=== PATIENT | female | born 1935 | race Caucasian/White ===

== ENCOUNTER 2017-03-04 08:00 | Inpatient (IN) ==
--- NOTE | 2017-02-26 15:26 | EKG Report ---
Test Performed on : 02/26/2017 3:23:44 PM Test Reason : PAT Blood Pressure : / mmHG Vent. Rate : 071 BPM Atrial Rate : 071 BPM P-R Int : 160 ms QRS Dur : 088 ms QT Int : 412 ms P-R-T Axes : 005 -31 051 degrees QTc Int : 447 ms Normal sinus rhythm. Left axis deviation Abnormal ECG No previous ECGs available Confirmed by Neri Denis MD ([id number]) on 02/27/2017 1:09:39 PM
[2017-02-26 15:40] LABS: MANUAL DIFF NEEDED? NO; URINE MICRO REVIEW NEEDED? NO; URINE SOURCE CLEAN CATCH
[2017-02-26 15:43] LABS: BILIRUBIN URINE NEGATIVE (NEGATIVE); BLOOD URINE NEGATIVE (NEGATIVE); COLOR YELLOW; GLUCOSE URINE NEGATIVE (NEGATIVE); LEUKOCYTES URINE MODERATE (NEGATIVE); NITRITE URINE NEGATIVE (NEGATIVE); PROTEIN URINE NEGATIVE (NEGATIVE); TURBIDITY URINE CLEAR (CLEAR); UR EPITHELIAL CELLS <10 /HPF (<10); URINE BACTERIA NEGATIVE /HPF; URINE RBC <10 /HPF (<10); UROBILINOGEN URINE NORMAL (NORMAL)
[2017-02-26 15:46] LABS: BASO% 0.4 % (0.0-0.8); EOS# 0.14 X1000 (0.0-0.7); EOS% 3.1 % (0.0-10.0); HEMATOCRIT 36.7 % (37.0-47.0); HEMOGLOBIN 12.2 g/dL (12.0-16.0); LYMPH# 1.09 X1000 (1.2-3.4); LYMPH% 23.7 % (20.5-51.1); MCH 34.1 PG (27-31); MCHC 33.2 g/dL (33-37); MCV 102.5 FL (81-99); MONO# 0.56 X1000 (0.11-0.59); MONO% 12.2 % (1.7-9.3); MPV 10.4 FL (7.4-10.4); NEUT% 60.6 % (42.2-75.2); PLT 91 X1000 (130-400); RBC 3.58 XMIL (4.2-5.4)
[2017-02-26 15:50] LABS: INR 1.16; PROTIME 12.3 Seconds (9.2-11.7)
[2017-02-26 16:10] LABS: CALCIUM 9.1 mg/dL (8.8-10.2)
[~2017-03-04 08:00] MED LIST: PRILOSEC PO PRN
[2017-03-04] MEDS ORDERED: REGLAN ONE (08:18)
[2017-03-04] MEDS ORDERED: COLACE ONE (08:18)
[2017-03-04] MEDS ORDERED: LR 1,000 ML ONE (08:18)
[2017-03-04] MEDS ORDERED: VANCOMYCIN 1 GM/NS 1 GM/250 ML IVPB ONE (08:18)
[2017-03-04] MEDS ORDERED: PEPCID ONE (08:18)
[2017-03-04] MEDS ORDERED: DIPRIVAN 1% ONE ×2 (09:38→11:42)
[2017-03-04] MEDS ORDERED: XYLOCAINE-MPF 2% ONE (09:39)
[2017-03-04] MEDS ORDERED: TORADOL ONE (09:40)
[2017-03-04] MEDS ORDERED: SODIUM CHLORIDE 0.9% ONE (09:40)
[2017-03-04] MEDS ORDERED: SENSORCAINE 0.25%/EPI 1:200,000 ONE (09:40)
[2017-03-04] MEDS ORDERED: DURAMORPH ONE (09:40)
[2017-03-04] MEDS ORDERED: VANCOMYCIN ONE (09:40)
[2017-03-04] MEDS ORDERED: CYKLOKAPRON 1,000 MG/NS 1,000 MG/100 ML IVPB ONE ×2 (09:40→09:41)
[2017-03-04] MEDS ORDERED: NEOSPORIN G.U. IRRIGANT ONE (09:41)
[2017-03-04] MEDS ORDERED: EXPAREL 1.3% ONE (09:41)
[2017-03-04] MEDS ORDERED: ZOFRAN ONE (10:01)
[2017-03-04] MEDS ORDERED: VERSED ONE ×2 (10:09→10:43)
[2017-03-04] MEDS ORDERED: FENTANYL ONE ×2 (10:33→14:09)
[2017-03-04] MEDS ORDERED: NEO-SYNEPHRINE ONE (11:15)
[2017-03-04] MEDS ORDERED: EPHEDRINE ONE (11:15)
[2017-03-04 11:20] LABS: URINE MICRO REVIEW NEEDED? NO; URINE SOURCE CATH
[2017-03-04 11:26] LABS: BILIRUBIN URINE NEGATIVE (NEGATIVE); BLOOD URINE NEGATIVE (NEGATIVE); COLOR YELLOW; GLUCOSE URINE NEGATIVE (NEGATIVE); LEUKOCYTES URINE NEGATIVE (NEGATIVE); NITRITE URINE NEGATIVE (NEGATIVE); PROTEIN URINE NEGATIVE (NEGATIVE); SP GRAVITY URINE 1.017; TURBIDITY URINE CLEAR (CLEAR); UROBILINOGEN URINE NORMAL (NORMAL)
[2017-03-04 11:27] LABS: UR EPITHELIAL CELLS <10 /HPF (<10); URINE BACTERIA NEGATIVE /HPF; URINE RBC <10 /HPF (<10); URINE WBC <10 /HPF (<10)
[2017-03-04] MEDS ORDERED: OFIRMEV 1000 MG/ISOTONIC SOLN 1,000 MG/100 ML BOTTLE ONE (11:27)
[2017-03-04] MEDS ORDERED: DECADRON ONE (11:33)
[2017-03-04] MEDS ORDERED: ZOFRAN PO PRN (14:30)
[2017-03-04] MEDS ORDERED: MILK OF MAGNESIA PO PRN (14:30)
[2017-03-04] MEDS: MOBIC PO SCH (14:43)
[2017-03-04] MEDS: PRINIVIL PO SCH ×2 (14:43→21:04)
[2017-03-04] MEDS: HYDROCHLOROTHIAZIDE PO SCH (14:43)
[2017-03-04] MEDS: NS 1,000 ML IV SCH (14:44)
--- NOTE | 2017-03-04 15:36 | OPERATIVE NOTE ---
PROCEDURE DATE: 03/04/2017 PREOPERATIVE DIAGNOSIS: Degenerative osteoarthritis of the right knee. POSTOPERATIVE DIAGNOSIS: Degenerative osteoarthritis of the right knee. PROCEDURE: Right total knee arthroplasty with DePuy Attune size 5 narrow posterior stabilized femur, a size 4 tibial tray, a 5 mm rotating platform tibial insert, and a 35 mm medialized anatomic patella. SURGEON: Vernon Rangel MD. [employer]: Monroe Schmitt and Emmie Parson. ANESTHESIA: Spinal. IV FLUIDS: 2000 mL lactated Ringer's. ESTIMATED BLOOD LOSS: 30 mL. TOURNIQUET TIME: 85 minutes at 350 mmHg. DRAINS: One Hemovac drain was placed and was not sewn in. COMPLICATIONS: None. INDICATION: The patient is a 81-year-old female with chronic history of worsening pain and discomfort in the right knee. Continued pain and discomfort despite appropriate nonoperative treatment. X-rays revealed degenerative osteoarthritis, and recommendation to proceed with right total knee arthroplasty was offered. The risks and benefits of surgical anchors, anesthesia, , bleeding, infection, failure to relieve pain, postoperative stiffness, nerve injury, blood clots, and other imponderables. All questions were answered. The patient and family wished to proceed. DETAILS OF OPERATION: The patient was taken to the operating room and placed supine on the operating table. Once adequate anesthesia was obtained, patient's right lower extremity was prepped and draped in usual sterile fashion. Esmarch was used to exsanguinate the right lower extremity and the tourniquet was inflated to 350 mmHg. A standard anterior incision made with a skin knife. Medial and lateral skin envelopes were developed. A standard medial parapatellar arthrotomy was then performed. Patella fat pad was excised. Retractors then placed. Approximately 1 cm anterior to the PCL insertion, a starting reamer was passed. Intramedullary guide with a distal femoral cutting block was pinned in position. The distal femoral cut was then performed under standard fashion. A sizing block was placed and measured to a size 5. Corresponding pins were placed. A size 5 cutting block was placed in position. Anterior, posterior, and chamfer cuts were then made. Attention then turned to the proximal femur where further resection of the ACL and PCL was performed. Using the extramedullary tibial guide a proximal tibia cutting block was pinned in position. Had good alignment confirmed with the alignment argenis. The proximal tibia was then resected in standard fashion. Medial and lateral meniscus was excised. A curved osteotome was used to remove the posterior osteophytes off the distal femur. A spacer block was placed and had good soft tissue balancing in both flexion and extension. Attention then turned back to the proximal tibia where the size 4 tibial tray appeared to the correct size. Corresponding pins were placed. This was followed by a central reamer and a fin punch. A box cutting guide was then placed on the distal femur and a box cut was performed. A trial femoral component was then placed and the 2 lug holes were drilled. A trial tibial insert was then placed and had good soft tissue balancing. The patella was everted and resected in a standard fashion. The size 35 appeared to be the correct size. Corresponding holes were drilled. A trial tibial patella component was then placed and had good patellofemoral tracking. All components were then removed. Copious irrigation then performed with antibiotic pulsatile lavage while vancomycin was mixed with cement on the back table. Sequential cementing was then performed, first with the tibial tray, and excess cement with a Norwood, followed by the femoral component and excess cement with a Norwood, followed by trial tibial insert in full extension, and axial loading was maintained while the cement cured. The patella was cemented in standard fashion and patella clamp was placed. Exparel was placed in the deep soft tissue, as well as subcutaneous tissue while the cement was curing. After cement had cured the peripheral cement was removed with a small osteotome. A 5 mm rotating platform tibial insert appeared to be correct size. The trial tibial insert was then removed and Exparel was placed in deep posterior capsule. The wound was copiously irrigated with antibiotic pulsatile lavage, followed by the 5 mm rotating platform tibial insert. The knee was carried through a range of motion and had good range of motion, good soft tissue balancing and good patellofemoral tracking. A 1/8 Hemovac drain was placed, it was not sewn in. Copious irrigation performed once again with antibiotic pulsatile lavage. A #1 Vicryl was used to repair the arthrotomy, followed by 2-0 Vicryl to repair the subcutaneous tissue, and skin tiffany. Adaptic, sterile 4 x 4, Webril, cryo unit, and Yevgeniy wrap applied to right lower extremity. Patient tolerated the procedure well with no complications. Transferred to the recovery room in stable condition the. cc: Vernon Rangel MD
[2017-03-04] MEDS: OXY IR PO PRN ×2 (16:17→21:03)
--- NOTE | 2017-03-04 16:41 | HISTORY AND PHYSICAL ---
SURGICAL HISTORY AND PHYSICAL: CHIEF COMPLAINT: Right knee pain. HISTORY OF PRESENT ILLNESS: Mrs. Dunn is a 81-year-old, white female who has experienced longstanding right knee pain. Her pain has been progressive. Radiographic evaluation of the knee reveals findings consistent with advanced degenerative joint disease. Despite conservative therapy, she still has a significant reduction in her ability to carry out her normal daily activities. She will be admitted at this time for right total knee arthroplasty. PRIMARY CARE PROVIDER: Miguel Acuna. ALLERGIES: 1. Contrast media. 2. Lyrica. 3. Sulfa drugs. 4. Penicillins. PAST MEDICAL HISTORY: 1. Osteoarthritis. 2. Hypertension. 3. Gastroesophageal reflux disease. 4. Degenerative disk disease. 5. Lower extremity neuropathy. PAST SURGICAL HISTORY: 1. Anterior cervical disk fixation. 2. Left total knee arthroplasty. 3. Bilateral shoulder arthroscopies. 4. Cholecystectomy. 5. section. 6. Hysterectomy. 7. Bilateral cataract surgery. 8. Low back diskectomy. SOCIAL HISTORY: The patient is . She is a nonsmoker. CURRENT MEDICATIONS: 1. Prilosec 20 daily as needed. 2. Meloxicam 15 mg daily. 3. Prinivil 20 mg twice daily. 4. Lortab 10 1 tablet by mouth up to 3 times a day. 5. Hydrochlorothiazide 25 mg by mouth daily. 6. Guaifenesin and dextromethorphan 1 tablet by mouth as necessary. REVIEW OF SYSTEMS: HEENT: Previously underwent cataract surgery. No known history of stroke or cerebrovascular disease. Cardiac: She has a history of hypertension. No history of heart disease or valvular heart disease. Denies chest pain, pressure, or other anginal equivalents. Pulmonary: The patient is a nonsmoker with no lung disease. Gastrointestinal: She is treated for intermittent gastroesophageal reflux disease. Genitourinary: Denies kidney or bladder infection or dysfunction. Neurological: She is treated for a lower extremity neuropathy. Musculoskeletal: She has a history of arthritis, previous left knee replacement. She is here for today for management of her right knee arthritis, and she has a longstanding history of degenerative disk disease, previously undergoing back surgery PHYSICAL EXAMINATION: GENERAL APPEARANCE: The patient is resting comfortably in bed. She is articulate and able to answer all questions. Her is at her bedside. HEENT: Head is normocephalic and atraumatic. Pupils are equal, round, react to light. Nares patent. Throat without exudate. NECK: Supple. HEART: Regular rate and rhythm. No murmurs, gallops, or rubs. LUNGS: Clear to auscultation bilaterally. GASTROINTESTINAL: Abdomen is round. Bowel sounds are present. It is nontender. GENITOURINARY: Not examined. NEUROLOGICAL: Gross motor function is intact as well as sensation to soft touch. MUSCULOSKELETAL: Right knee, no deformity is noted. She does have some lower extremity woody edema on the right. She has 2+ capillary refill. I was unable to palpate her distal pulses secondary to swelling. IMPRESSION: Degenerative joint disease of the right knee. PLAN: Right total knee arthroplasty. The risks and benefits of surgery were explained to the patient including the risk of anesthesia, , bleeding, infection, damage to tendons, ligaments, nerves, blood vessels, the possibility of blood clots and other imponderables were discussed and she wishes to proceed with operative management at this time. Dictated by DAVID Rocha for Vernon Rangel MD cc: DAVID Rocha MD
[2017-03-04] MEDS: MORPHINE IV PRN ×4 (17:06→22:57)
[2017-03-04] MEDS: TYLENOL PO SCH ×2 (17:57→23:01)
[2017-03-04] MEDS: COLACE PO SCH (20:23)
[2017-03-04] MEDS: PERIDEX MT SCH (21:03)
[2017-03-04] MEDS ORDERED: VANCOMYCIN 1 GM/NS 1 GM/250 ML IVPB IV ONE (22:00)
[2017-03-05] MEDS: MORPHINE IV PRN (01:17)
[2017-03-05] MEDS: NS 1,000 ML IV SCH ×2 (01:18→06:26)
[2017-03-05] MEDS: OXY IR PO PRN (05:21)
[2017-03-05] MEDS: TYLENOL PO SCH (05:21)
[2017-03-05 05:39] LABS: HEMATOCRIT 31.3 % (37.0-47.0); HEMOGLOBIN 10.4 g/dL (12.0-16.0)
[2017-03-05] MEDS ORDERED: XARELTO PO SCH (06:00)
[2017-03-05 06:02] LABS: CALCIUM 8.4 mg/dL (8.8-10.2); POTASSIUM 5.9 mmol/L (3.5-5.1)
--- NOTE | 2017-03-05 07:19 | Diag Imaging Result Doc PS360 ---
EXAM: KNEE 1-2 VIEWS-RIGHT HISTORY: s/p RTKA TECHNIQUE: COMPARISON: None. FINDINGS: The patient has undergone orthopedic replacement of the right knee. There are anterior skin tiffany and there is a superior surgical drain. No fracture. No dislocation. IMPRESSION: Recently replaced right knee with good alignment to the femoral and tibial components. Electronically signed by Dallas Richards 03/05/2017 7:16 AM
[2017-03-05 07:35] VITALS: BP 144/55
--- NOTE | 2017-03-05 08:47 | PROGRESS NOTE ---
DATE: 03/05/2017 SUBJECTIVE: The patient is a pleasant, 81-year-old female who is 1 day status post right total knee arthroplasty. Patient is currently resting comfortably and has no complaints this morning. OBJECTIVE: On physical examination of patient's right lower extremity, her dressing is intact. Calf is soft. She has active dorsiflexion and plantarflexion. She is neurovascularly distally. Her hemoglobin is 10.4 and hematocrit is 31.3. IMPRESSION: Postoperative day #1 status post right total knee arthroplasty. PLAN: We will discontinue her drain and her Langford. We will also change her dressing. We will also Hep-Lock her IV. We will plan on discharging home later today if she has mobilized well with physical therapy. cc: Vernon Rangel MD
[2017-03-05] MEDS: MOBIC PO SCH (09:26)
[2017-03-05] MEDS: PRINIVIL PO SCH (09:26)
[2017-03-05] MEDS: HYDROCHLOROTHIAZIDE PO SCH (09:27)
[2017-03-05] MEDS: COLACE PO SCH (09:27)
[2017-03-05] MEDS: PERIDEX MT SCH (09:27)
== END 2017-03-05 11:22 | disposition home or self-care (01) ==
LOC: SURHOLD 08:00 → 4N 10:26
PROVIDERS: ADMIT Orthopaedic Surgery Adult Reconstructive Orthopaedic Surgery; ATTEND Orthopaedic Surgery Adult Reconstructive Orthopaedic Surgery